=== PATIENT | female | born 1995 | race Two or more races ===

== ENCOUNTER 2020-01-23 12:54 | Emergency (ER) | payer OTHER ==
[~2020-01-23] VITALS: Ht 160 cm; Wt 93.0 kg
[2020-01-23 12:57] VITALS: Ht 160 cm; Wt 93.0 kg
[2020-01-23 13:54] LABS: CALCIUM 8.9 mg/dL (8.5-10.1); CARBON DIOXIDE 23.8 mmol/L (21-32); CHLORIDE SERUM 101 mmol/L (98-107); CREATININE SERUM 0.6 mg/dL (0.6-1.0); GFR1 > 60 mL/min; GLUCOSE SERUM 110 mg/dL (74-106); POTASSIUM SERUM 3.6 mmol/L (3.5-5.1); SODIUM SERUM 136 mmol/L (136-145)
[2020-01-23 13:56] LABS: BASOPHIL % 0 % (0-2); PLATELET COUNT 287 x10^3mcL (130-400); RED CELL DISTRIBUTION WIDTH 13.8 % (11.5-14.5)
[2020-01-23 13:59] LABS: ALBUMIN 2.7 g/dL (3.4-5.0); ALKALINE PHOSPHATASE 122 U/L (46-116); ALT/SGPT 22 U/L (14-59); AST/SGOT 16 U/L (15-37); BILIRUBIN TOTAL 0.2 mg/dL (0.20-1.00); TOTAL PROTEIN, SERUM 7.1 g/dL (6.4-8.2)
[2020-01-23 16:08] LABS: microscopic required? NO
[2020-01-23 16:15] LABS: UA SPECIFIC GRAVITY 1.025 (1.005-1.035); urine erythrocyte NEGATIVE (NEGATIVE)
[2020-01-23 18:26] VITALS: BP 99/50
== END 2020-01-23 18:26 | disposition home or self-care (01) ==
LOC: ED 12:54
PROVIDERS: Emergency Medicine
DX: O21.0 Mild hyperemesis gravidarum (principal); E86.0 Dehydration; Z3A.23 23 weeks gestation of pregnancy
CPT/HCPCS: J2405; J7030; J8597

== ENCOUNTER 2020-06-02 18:14 | Emergency (ER) | payer OTHER ==
[~2020-06-02] VITALS: Ht 160 cm; Wt 96.2 kg
[2020-06-02 18:19] VITALS: Ht 160 cm; Wt 96.2 kg
[2020-06-02 21:12] VITALS: BP 131/81
== END 2020-06-02 21:12 | disposition home or self-care (01) ==
LOC: ED 18:14
DX: O72.1 Other immediate postpartum hemorrhage (principal); O86.20 Urinary tract infection following delivery, unspecified
CPT/HCPCS: J1885; Q0092